=== PATIENT | male | born 1965 | race Caucasian/White ===

== ENCOUNTER 2019-06-17 17:07 | Emergency (ER) | payer BC ==
--- OUTSIDE RECORDS SUMMARY | 2019-06-17 17:32 | XMS REPORT | Summary of Care ---
:1965 Author Organization [facility] Address [address] [place] [address] Care Team Providers Name Role Phone Yudi Lora MD Primary Care Provider Encounter Details Date Type Department Care Team Description 05/08/2019 Procedure visit [facility] Ke Acosta MD Arrived at the [address] [facility] [place], [place] [address] [address] [address] [place] [id number] Allergies Active Allergy Reactions Severity Noted Date Comments Penicillins Anaphylaxis High 08/07/2017 documented as of this encounter (statuses as of 05/10/2019) Medications Medication Sig Dispensed Refills Start Date End Date Status LANCETS MICRO THIN 33G by Does not 0 Active MISC apply route ramipril (ALTACE) 10 MG Take 10 mg by 0 Active capsule mouth daily hydrochlorothiazide Take 12.5 mg 0 Active (MICROZIDE) 12.5 MG by mouth daily capsule HYDROcodone-acetaminophen Take 1 tablet 0 Active (LORTAB) 5-325 MG per by mouth every tablet 6 (six) hours as needed for Pain ibuprofen (ADVIL,MOTRIN) Take 200 mg by 0 Active 200 MG tablet mouth every 6 (six) hours as needed for Pain naproxen sodium (ANAPROX) Take 275 mg by 0 Active 275 MG tablet mouth as needed aspirin 81 MG tablet Take 81 mg by 0 Active mouth daily Multiple Take 1 tablet 0 Active Vitamins-Minerals (MENS by mouth daily MULTIVITAMIN PLUS PO) ACCU-CHEK GUIDE test Use as 300 each 1 05/14/2018 Active stripIndications: Type 2 directed to 0 diabetes mellitus with check blood hyperglycemia, without glucose 3 long-term current use of times daily. insulin Dx E11.65 metformin (GLUCOPHAGE XR) Take 2 tablets 360 tablet 3 06/11/2018 Active 500 MG 24 hr twice a day tabletIndications: Type 2 before meals diabetes mellitus with hyperglycemia, without long-term current use of insulin Insulin Pen Needle (BD Use as 50 each 5 09/17/2018 Active PEN NEEDLE KEVIN U/F) 32G directed. Use X 4 MM MISCIndications: as directed to Type 2 diabetes mellitus inject Lantus with hyperglycemia, with long-term current use of insulin glipiZIDE (GLUCOTROL) 5 Take 1 tablet 60 tablet 5 10/25/2018 Active MG tablet by mouth Two times daily before meals CINNAMON PO Take by mouth 0 Active Insulin Glargine 100 Inject 14 15 mL 5 02/27/2019 Active UNIT/ML Subcutaneous units nightly 0 Solution Pen-injector into the skin. (LANTUS SOLOSTAR) Max Daily Dose 50 units with priming and titration. E11.65 Dulaglutide 0.75 MG/0.5ML Inject 0.75 mg 4 pen 5 03/31/2019 Active Subcutaneous Solution weekly. E11.65 0 Pen-injector (TRULICITY) documented as of this encounter (statuses as of 05/10/2019) Active Problems Problem Noted Date Long-term insulin use 02/27/2019 Last Assessment & Plan: lantus 14 units daily Glipizide 5 mg BID. Metformin XR 500 mg 2 tabs twice daily with meals Dyslipidemia 10/09/2017 Type 2 diabetes mellitus with hyperglycemia, with long-term current use of insulin Last Assessment & Plan: Increase metformin XR to 500 mg 2 tablets twice a day Stop Januvia Start Trulicity 0.75 mg once a week Increase glipizide to 10 mg by mouth twice a day Please check your blood glucose twice a day before breakfast and randomly before dinner or at bedtime And as needed for low blood glucose Please check 3-4 times day initially as discussed Benign essential hypertension 08/06/2017 Low back pain 08/06/2017 Hypocalcemia 08/06/2017 documented as of this encounter (statuses as of 05/10/2019) Resolved Problems Problem Noted Date Resolved Date Long-term insulin use 08/07/2017 08/07/2017 Last Assessment & Plan: Increase metformin XR to 500 mg 2 tablets twice a day Stop Januvia Start Trulicity 0.75 mg once a week Increase glipizide to 10 mg by mouth twice a day Please check your blood glucose twice a day before breakfast and randomly before dinner or at bedtime And as needed for low blood glucose Please check 3-4 times day initially as discussed documented as of this encounter (statuses as of 05/10/2019) Social History Tobacco Use Types Packs/Day Years Used Date Never Smoker Smokeless Tobacco: Never Used Alcohol Use Drinks/Week oz/Week Comments No Sex Assigned at Date Recorded Not on file Job Start Date Occupation Industry Not on file Not on file Not on file Travel History Travel Start Travel End No recent travel history available. documented as of this encounter Last Filed Vital Signs Not on filedocumented in this encounter Plan of Treatment Date Type Specialty Care Team Description 06/13/2019 Office Visit Endocrinology Alicia Diggs NP [address] [place] [address] [phone] 09/18/2019 Office Visit Endocrinology Alicia Dgigs NP [address] [place] [address] [phone] 10/01/2019 Office Visit Gastroenterology Michael Pollock MBBS [address] [address] [phone] 12/25/2019 Office Visit Endocrinology Nadege Zayas MD [address] [place] [address] [phone] Health Maintenance Due Date Last Done Comments MMR Vaccines (1 of 1 - 09[birth year]12/1966 Standard series) Varicella Vaccines (1 of 2 09/12/1967 - 2-dose childhood series) Pneumococcal Vaccine: 1972 Pediatrics (0 to 5 Years) and At-Risk Patients (6 to 64 Years) (1 of 1 - PPSV23) HIV Screening 09/12/1979 Diabetic Foot Exam 1984 Dilated Retinal Exam 1984 Urine Microalbumin 1984 Hepatitis B Vaccines (1 of 1985 3 - Risk 3-dose series) Colon Cancer Screening 10 2016 yrs DTaP,Tdap,and Td Vaccines 06/26/2018 05/29/2018 (2 - Td) Influenza Vaccine 01/14/2019 Hemoglobin A1c 08/28/2019 02/27/2019, 11/27/2018, 09/17/2018, Additional history exists Lipid Disorder Screening 11/28/2019 11/27/2018, 05/23/2018 Pneumococcal Vaccine: 65+ 09/12/2031 Years (1 of 2 - PCV13) HIB Vaccines Aged Out No longer eligible based on patient's age to complete this topic Hepatitis A Vaccines Aged Out No longer eligible based on patient's age to complete this topic IPV Vaccines Aged Out No longer eligible based on patient's age to complete this topic documented as of this encounter Procedures Procedure Name Priority Date/Time Associated Diagnosis Comments UPPER GI ENDOSCOPY 05/08/2019 12:00 AM EST documented in this encounter Results Not on filedocumented in this encounter
--- OUTSIDE RECORDS SUMMARY | 2019-06-17 17:32 | XMS REPORT | Summary of Care ---
:[address] [facility] Address [address] [place] [address] Care Team Providers Name Role Phone Yudi Lora MD Primary Care Provider Encounter Details Date Type Department Care Team Description 05/08/2019 Hospital Encounter [facility] Anatomical Pathology at [facility] [address] [place] [address] Allergies Active Allergy Reactions Severity Noted Date Comments Penicillins Anaphylaxis High 08/07/2017 documented as of this encounter (statuses as of 05/13/2019) Medications Medication Sig Dispensed Refills Start Date [...] as of this encounter (statuses as of 05/13/2019) Active Problems Problem Noted Date Long-term insulin [...] as of this encounter (statuses as of 05/13/2019) Resolved Problems Problem Noted Date Resolved Date [...] as of this encounter (statuses as of 05/13/2019) Social History Tobacco Use Types Packs/Day Years [...] 06/13/2019 Office Visit Endocrinology Alicia Diggs NP [address] [place] [address] [phone] 09/18/2019 Office Visit Endocrinology Alicia Diggs NP [address] [place] [address] [phone] 10/01/2019 Office Visit Gastroenterology Michael Pollock, [facility] [address] [address] [phone] 12/25/2019 Office Visit Endocrinology Nadege Zayas MD [address] [place] [address] [phone] Name Type Priority Associated Diagnoses Date/Time Surgical Pathology Pathology and Routine 05/12/2019 9:00 Exam ( Only) Cytology AM EST Name Type Priority Associated Order Schedule Diagnoses Surgical Pathology Pathology and Routine Once for 1 Exam ( Only) Cytology Occurrences starting 05/08/2019 until 05/08/2019 Health Maintenance Due Date Last Done Comments MMR Vaccines (1 of - 09/12/1967 Standard series) Varicella Vaccines (1 of 2 09/12/1967 - 2-dose childhood series) Pneumococcal Vaccine: 1972 Pediatrics (0 to 5 Years) and At-Risk Patients (6 to 64 Years) (1 of - PPSV23) HIV Screening 09/12/1979 Diabetic Foot [...] this topic documented as of this encounter Results Not on filedocumented in this encounter
--- OUTSIDE RECORDS SUMMARY | 2019-06-17 17:32 | XMS REPORT | Summary of Care ---
:1965 Author Organization [facility] Address [address] [place] [address] Care Team Providers Name Role Phone Yudi Lora MD Primary Care Provider Reason for Visit Reason Comments Diabetes Encounter Details Date Type Department Care Team Description 06/13/2019 Office Visit [facility] Alicia Diggs, Type 2 diabetes mellitus with hyperglycemia, with long-term current use of insulin (Primary Dx); [facility] [employer] Long-term insulin use; [address] [place] [address] Dyslipidemia; [place] [address] Benign essential hypertension [id number] [phone] Allergies Active Allergy Reactions Severity Noted Date Comments Penicillins Anaphylaxis High 08/07/2017 documented as of this encounter (statuses as of 06/13/2019) Medications Medication Sig Dispensed Refills Start End Status Date Date LANCETS MICRO THIN 33G by Does not 0 Active MISC apply route ramipril (ALTACE) 10 MG Take 10 mg 0 Active capsule by mouth daily hydrochlorothiazide Take 12.5 mg 0 Active (MICROZIDE) 12.5 MG by mouth capsule daily HYDROcodone-acetaminoph Take 1 0 Active en (LORTAB) 5-325 MG tablet by per tablet mouth every 6 (six) hours as needed for Pain ibuprofen Take 200 mg 0 Active (ADVIL,MOTRIN) 200 MG by mouth tablet every 6 (six) hours as needed for Pain naproxen sodium Take 275 mg 0 Active (ANAPROX) 275 MG tablet by mouth as needed aspirin 81 MG tablet Take 81 mg 0 Active by mouth daily Multiple Take 1 0 Active Vitamins-Minerals (MENS tablet by MULTIVITAMIN PLUS PO) mouth daily metformin (GLUCOPHAGE Take 2 360 tablet 3 Active XR) 500 MG 24 hr tablets 9 tabletIndications: Type twice a day 2 diabetes mellitus before meals with hyperglycemia, without long-term current use of insulin Insulin Pen Needle (BD Use as 50 each 5 Active PEN NEEDLE KEVIN U/F) directed. 9 32G X 4 MM Use as MISCIndications: Type 2 directed to diabetes mellitus with inject hyperglycemia, with Lantus long-term current use of insulin glipiZIDE (GLUCOTROL) 5 Take 1 60 tablet 5 Active MG tablet tablet by 9 mouth Two times daily before meals CINNAMON PO Take by 0 Active mouth Insulin Glargine 100 Inject 14 15 mL 5 Active UNIT/ML Subcutaneous units 9 020 Solution Pen-injector nightly into (LANTUS SOLOSTAR) the skin. Max Daily Dose 50 units with priming and titration. E11.65 Dulaglutide 1.5 Inject 1.5 4 pen 5 Active MG/0.5ML Subcutaneous mg weekly. 0 021 Solution Pen-injector E11.65 (TRULICITY) Dulaglutide 0.75 Inject 0.75 4 pen 5 Discontinued MG/0.5ML Subcutaneous mg weekly. 9 020 (Dose Solution Pen-injector E11.65 adjustment) (TRULICITY) documented as of this encounter (statuses as of 06/13/2019) Active Problems Problem Noted Date Long-term insulin [...] as of this encounter (statuses as of 06/13/2019) Resolved Problems Problem Noted Date Resolved Date [...] as of this encounter (statuses as of 06/13/2019) Social History Tobacco Use Types Packs/Day Years Used Date Never Smoker Smokeless Tobacco: Never Used Alcohol Use Drinks/Week oz/Week Comments No Sex Assigned at Date Recorded Not on file Job Start Date Occupation Industry Not on file Not on file Not on file Travel History Travel Start Travel End No recent travel history available. documented as of this encounter Last Filed Vital Signs Vital Sign Reading Time Taken Comments Blood Pressure 120/80 06/13/2019 3:30 PM EST Pulse 84 06/13/2019 3:30 PM EST Temperature - - Respiratory Rate 16 06/13/2019 3:30 PM EST Oxygen Saturation - - Inhaled Oxygen Concentration - - Weight 106.4 kg (234 lb 9.6 oz) 06/13/2019 3:30 PM EST Height 177.5 cm (5' 9.88") 06/13/2019 3:30 PM EST Body Mass Index 33.78 06/13/2019 3:30 PM EST documented in this encounter Patient Instructions Patient InstructionsAqAlicia vee NP - 06/13/2019 3:20 PM ESTStart trulicity 1.5 mg weekly Continue your other medications Test BG level in the morning and at bedtime documented in this encounter Progress Notes Alicia Diggs NP - 06/13/2019 3:20 PM EST Nate Morgan is a 53 y.o. male seen today for evaluation and management of type 2 diabetes. He was last seen in our office 02/2019. Since last visit, he was started on trulicity He had met with GI and they had no concerns with him starting given history of elevated lipase. His recent lipase was normal. He was however diagnosed with celiac disease. He is trying to follow a gluten free diet. He started using a new meter a few weeks ago. [employer]. We are unable to download it. He had his last week of readings. He checks in AM. HPI: Diabetes first diagnosed: 3 years prior Previously treated with: Eryn Currently manages diabetes with: Metformin XR 500 mg 2 tabs twice daily Glipizide 5 mg BID Lantus 14 units daily trulicity 0.75 mg weekly DIABETES RELATED ROS: 1. Blood sugar checks x In AM 2. Symptoms of hypoglycemia: no lows Require outside assistance: no Loss of consciousness: no Seizure: no Medic Alert: no 3. Threshold: unsure 4. Diabetic ketoacidosis: no 5. Neuropathic symptoms (paresthesiae/numbness/pain): no 6. Last eye exam: Dr. Roberts, up to date, March 2019, denies DR 7. Macrovascular disease symptoms: angina: no intermittent claudication: no TIA: no 8. Foot Ulceration: no HOME BLOOD GLUCOSE RECORD Reviewed. 120, 142, 148, 156, 158- AM checks Work- out of town a lot, department of [employer], [employer]- doesn't eat as well, but sleeps well. Usually gone the week Past Medical History: Diagnosis Date Benign essential hypertension Diverticulosis Hypocalcemia Low back pain Type 2 diabetes mellitus with hyperglycemia Past Surgical History: Procedure Laterality Date COLONOSCOPY 2017 diverticula- done in [place] LAMINECTOMY 2001 Family History Problem Relation Age of Onset Diabetes Mother Kidney disease Mother Heart disease Mother Diabetes Father Colon polyps Father No Known Problems Brother Diabetes Paternal Grandmother Heart attack Maternal Grandfather No Known Problems Son Ovarian cancer Daughter SOCIAL HISTORY: Social History Tobacco Use Smoking status: Never Smoker Smokeless tobacco: Never Used Substance Use Topics Alcohol use: No Drug use: No Allergies Allergen Reactions Penicillins Anaphylaxis Current Outpatient Medications Medication Sig Dispense Refill aspirin 81 MG tablet Take 81 mg by mouth daily CINNAMON PO Take by mouth Dulaglutide 0.75 MG/0.5ML Subcutaneous Solution Pen-injector (TRULICITY) Inject 0.75 mg weekly. E11.65 4 pen 5 glipiZIDE (GLUCOTROL) 5 MG tablet Take 1 tablet by mouth Two times daily before meals 60 tablet 5 hydrochlorothiazide (MICROZIDE) 12.5 MG capsule Take 12.5 mg by mouth daily HYDROcodone-acetaminophen (LORTAB) 5-325 MG per tablet Take 1 tablet by mouth every 6 (six) hours as needed for Pain ibuprofen (ADVIL,MOTRIN) 200 MG tablet Take 200 mg by mouth every 6 (six ) hours as needed for Pain Insulin Glargine 100 UNIT/ML Subcutaneous Solution Pen-injector (LANTUS SOLOSTAR) Inject 14 units nightly into the skin. Max Daily Dose 50 units with priming and titration. E11.65 15 mL 5 Insulin Pen Needle (BD PEN NEEDLE KEVIN U/F) 32G X 4 MM MISC Use as directed. Use as directed to inject Lantus 50 each 5 LANCETS MICRO THIN 33G MISC by Does not apply route metformin (GLUCOPHAGE XR) 500 MG 24 hr tablet Take 2 tablets twice a day before meals 360 tablet 3 Multiple Vitamins-Minerals (MENS MULTIVITAMIN PLUS PO) Take 1 tablet by mouth daily naproxen sodium (ANAPROX) 275 MG tablet Take 275 mg by mouth as needed ramipril (ALTACE) 10 MG capsule Take 10 mg by mouth daily No current facility-administered medications for this visit. ROS: The remainder of complete review of systems is otherwise negative except as noted in HPI. PHYSICAL EXAM: Vitals: 06/13/19 1530 BP: 120/80 BP Location: Right arm Patient Position: Sitting Cuff size: Adult Large Pulse: 84 Resp: 16 Weight: 106.4 kg (234 lb 9.6 oz) Height: 1.775 m (5' 9.88") Body mass index is 33.78 kg/m. Wt Readings from Last 3 Encounters: 03/19/19 106.2 kg (234 lb 3.2 oz) 02/27/19 106.6 kg (235 lb) 01/17/19 106 kg (233 lb 9.6 oz) BP Readings from Last 3 Encounters: 03/19/19 143/87 02/27/19 140/78 01/17/19 138/82 GENERAL: Awake, alert and in no acute distress EYES: conjunctivae are pink and moist, anicteric, PERRL ENT/MOUTH: dentition: good, tongue normal NECK: No adenopathy. THYROID: thyroid is not palpable, no nodules, non-tender CARDIOVASCULAR: regular rate and rhythm, no murmur RESPIRATORY: Clear to auscultation bilaterally. No wheezing, rales or rhonchi GASTROINTESTINAL: soft, non-tender, non-distended, normal bowel sounds MUSCULOSKELETAL: normal muscle mass, normal gait SKIN: no breakdown PSYCHIATRIC: mood and affect are normal. Diabetic Foot Exam: Yes Inspection: Left - No ulcers or lesions noted and Right - No ulcers or lesions noted Pulses: Left Normal and Right Normal Monofilament Exam: Left - Normal and Right - Normal LABS: Lab Results Component Value Date HGBA1C 10.3 (H) 02/27/2019 HGBA1C 7.8 (A) 11/27/2018 HGBA1C 8.3 (H) 09/17/2018 Lab Results Component Value Date POCGLU 318 (H) 02/27/2019 Lab Results Component Value Date CHO 133 11/27/2018 TRIG 119 11/27/2018 HDL 32 11/27/2018 LDL 77 11/27/2018 No results found for: LDLDIRECT Lab Results Component Value Date CREATININE 1.1 11/27/2018 BUN 21 (H) 03/19/2019 No components found for: EGFR No results found for: MICROALBCR Lab Results Component Value Date AST 23 03/19/2019 Lab Results Component Value Date ALT 33 03/19/2019 No results found for: TSH, [id number], T7OUSUK, THYROIDAB No results found for: FREET4 No results found for: CALCIUM, PHOS Assessment/Plan: 1. Diabetes Mellitus Type 2: A1C 8.4%, Prior A1c 10.3% , Goal ~ 7 with no lows. - increase trulicity to 1.5 mg weekly - continue metformin, lantus, and glipizide - continue efforts at lifestyle modification - start checking BG level more often (morning/bedtime),let us know if having pattern of hypo/hyperglycemia - Proper administration of medications was reviewed. - Self-management issues reviewed, including ways of avoiding hypoglycemia and hyperglycemia. - Lifestyle issues, including diet, weight management and physical activity discussed. -labs reviewed -diet and exercise reviewed 2. Blood Pressure: Within guidelines today. - will monitor - will adjust MAHAD if continues to be above goal 3. Lipids: within guidelines per last labs -not on statin 4. Elevated Lipase Level: hx of - last lipase acceptable - no signs/symptoms of pancreatitis - no ETOH use per pt RTC 3 months Diabetes Self-Management Education/Training (DSME/T) Per [facility] policy AMB J-19, the [facility] RN yard worker CDE may provide my patient with insulin adjustmentsand all diabetes management guidelines per approved policies AMB J-01 through AMB J-18. My patient may receive diabetes self- management education for any nursing, nutrition, or physical therapy needs which arise and require the expertise of a [facility] educator. No problem-specific Assessment & Plan notes found for this encounter. Orders Placed This Encounter Dulaglutide 1.5 MG/0.5ML Subcutaneous Solution Pen-injector (TRULICITY) documented in this encounter Plan of Treatment Date Type Specialty Care Team Description 09/18/2019 Office Visit Endocrinology lAicia Diggs NP [address] [place] [address] [phone] 10/01/2019 Office Visit Gastroenterology Sheikh Joe Jimenez MBBS [address] [address] [phone] 12/25/2019 Office Visit Endocrinology Nadege Zayas MD [address] [place], [place] [id number] Health Maintenance Due Date Last Done Comments [...] encounter Procedures Procedure Name Priority Date/Time Associated Comments Diagnosis POCT GLUCOSE, DOCKED Routine 06/13/2019 3:21 PM Results for this EST procedure are in the results section. POCT HEMOGLOBIN A1C, Routine 06/13/2019 3:09 PM Results for this DOCKED EST procedure are in the results section. documented in this encounter Results POCT glucose, docked (06/13/2019 3:21 PM EST) POC Glucose 194 (H) 70 - 140 mg/dL [facility] Specimen Whole Blood Performing Organization Address [facility] Number POINT OF CARE TEST [address] [place] [address] [facility] [address] [place] [address] POCT Hemoglobin A1C, Docked (06/13/2019 3:09 PM EST) Hemoglobin A1C 8.4 (H) 4.0 - 6.0 % [facility] Estimated Avg Glucose 194 (H) <126 mg/dL [facility] Specimen Whole Blood Performing Organization Address [facility] [place] Number POINT OF CARE TEST [address] [place] [phone] [facility] [address] [place] [phone] documented in this encounter Visit Diagnoses Diagnosis Type 2 diabetes mellitus with hyperglycemia, with long-term current use of insulin - Primary Long-term insulin use Encounter for long-term (current) use of insulin Dyslipidemia Other and unspecified hyperlipidemia Benign essential hypertension Essential hypertension, benign documented in this encounter
[2019-06-17 17:45] VITALS: BP 127/61
--- NOTE | 2019-06-17 17:53 | UC ---
FLU HPI - HPI Summary HPI Summary: 53yo male presenting with fiance for fever and body aches that began this morning around 1000. States fever was 101.7. Took naproxen with some relief. Denies cough. Denies sore throat. States mild nasal congestion that began a couple hours ago. Denies n/v. Normal appetite and fluid intake. - History of Current Complaint Chief Complaint: UCGeneralIllness Stated Complaint: FEVER, BODY ACHES Hx Obtained From: Patient Pain Intensity: 5 Pain Scale Used: 0-10 Numeric - Allergy/Home Medications Allergies/Adverse Reactions: Allergies Allergy/AdvReac Type Severity Reaction Status Date / Time Penicillins AdvReac Hives Verified 06/17/19 17:45 Home Medications: Home Medications Dulaglutide (NF) [Trulicity (NF)] 0.5 mg SUBCUT WEEKLY 06/17/19 [History Confirmed 06/17/19] Hydrochlorothiazide TAB* [Hydrodiuril TAB*] 12.5 mg PO DAILY 06/17/19 [History Confirmed 06/17/19] Insulin Glargine,Hum.rec.anlog [Lantus Solostar 100 units/ml 3 ml x 5 PENS] 14 unit SUBCUT DAILY 06/17/19 [History Confirmed 06/17/19] Ramipril 10 mg PO DAILY 06/17/19 [History Confirmed 06/17/19] glipiZIDE [Glipizide] 5 mg PO DAILY 06/17/19 [History Confirmed 06/17/19] metFORMIN* [Glucophage 500 MG TAB *] 500 mg PO DAILY 06/17/19 [History Confirmed 06/17/19] PMH/Surg Hx/FS Hx/Imm Hx Endocrine History: Diabetes Cardiovascular History: Hypertension - Surgical History Surgery Procedure, Year, and Place: spinal surgery - Family History Known Family History: Positive: Hypertension - Social History Alcohol Use: None Substance Use Type: Excessive Caffeine Smoking Status (MU): Never Smoked Tobacco Review of Systems All Other Systems Reviewed And Are Negative: Yes Constitutional: Positive: Fever, Fatigue ENT: Positive: Negative Respiratory: Positive: Negative Cardiovascular: Positive: Negative Gastrointestinal: Positive: Negative Musculoskeletal: Positive: Myalgia Neurological/Mental Status: Positive: Negative Physical Exam - Summary Physical Exam Summary: Vital Signs Reviewed: Yes A+Ox3, no distress, well-appearing Eyes: Conjunctiva Clear, ENT: Hearing grossly normal, TM x 2 clear, moist, uvula midline, no exudate, no erythema Neck: Positive: Supple Respiratory: Positive: No respiratory distress, No accessory muscle use + CTA throughout no w/r Cardiovascular: RRR nl s1, s2 no m/r Musculoskeletal Exam: LUND x 4 without difficulty Neurological: Positive: Alert Psychological: Positive: age appropriate behavior Skin: Positive: no rash, no ecchymosis Vital Signs: Initial Vital Signs Temp 99.8 F 06/17/19 17:42 Pulse 122 06/17/19 17:42 Resp 20 06/17/19 17:42 BP 127/61 06/17/19 17:42 Pulse Ox 98 06/17/19 17:42 Lab Results 06/17/19 Range/Units 17:51 Influenza A (Rapid) Negative (Negative) Influenza B (Rapid) Negative (Negative) Flu Course/Dx - Course Course Of Treatment: Negative rapid flu. Discussed viral illness with patient and instructed to continue symptomatic treatment. Instructed to follow up with PCP if symptoms worsen or persist. Patient voiced understanding and agreed with the treatment plan. - Differential Dx/Diagnosis Differential Diagnosis/HQI/PQRI: Influenza, Upper Respiratory Infection Provider Diagnosis: Flu-like symptoms Discharge ED - Sign-Out/Discharge Documenting (check all that apply): Patient Departure All imaging exams completed and their final reports reviewed: No Studies - Discharge Plan Condition: Stable Disposition: HOME Patient Education Materials: Viral Syndrome (ED) Referrals: Yudi Lora MD [Primary Care Provider] - If Needed Additional Instructions: Your flu test was negative. Your symptoms are likely caused by a virus and should resolve without treatment. Get plenty of rest and fluids. Continue with tylenol or ibuprofen for fever and pain relief. Follow up with your primary care provider for any new or worsening symptoms. - Billing Disposition and Condition Condition: STABLE Disposition: Home - Attestation Statements Provider Attestation: This patient was not seen by me. I was available for consult. Chart reviewed. HIRAM
[2019-06-17 18:08] LABS: Influenza A Molecular Negative (Negative); Influenza B Molecular Negative (Negative)
== END 2019-06-17 18:22 | disposition home or self-care (01) ==
LOC: UCCORT 17:07
DX: R50.9 Fever, unspecified (principal); R53.83 Other fatigue; I10 Essential (primary) hypertension; M79.10 Myalgia, unspecified site; E11.9 Type 2 diabetes mellitus without complications; Z79.4 Long term (current) use of insulin; Z79.899 Other long term (current) drug therapy; Z88.0 Allergy status to penicillin
CPT/HCPCS: 99201; G0463